=== PATIENT | male | born 1980 | race American Indian/Alaskan Native ===

== ENCOUNTER 2017-10-04 09:55 | Emergency (ER) | payer BC, OTHER ==
[2017-10-04 10:30] VITALS: BMI 26.4
[2017-10-04 10:44] VITALS: RESP 18; TEMP 97.2
--- NOTE | 2017-10-04 10:55 | ED PDOC ---
Arrival/HPI - General Chief Complaint: Upper Extremity Problem/Injury Time Seen by Provider: 10/04/17 10:26 Historian: Patient - History of Present Illness Narrative History of Present Illness (Text): 10/04/17 10:52 This 37 yo male who denies pmh, presents to this ED c/o left shoulder pain x 2 days. 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 Patient denies fall, skin rash, weakness, paresthesias, sob, cp, abdominal pain, neck pain, GO, or abnormal gait. Time/Duration: Other (see hpi) Context: Home Past Medical History - Provider Review Nursing Documentation Reviewed: Yes - Past History Past History: No Previous - Infectious Disease Hx of Infectious Diseases: None - Tetanus Immunization Tetanus Immunization: Unknown - Past Medical History Past Medical History: No Previous - Psychiatric Hx Psychophysiologic Disorder: No Hx Anxiety: No Hx Bipolar Disorder: No Hx Depression: No Hx Emotional Abuse: No Hx Hallucinations: No Hx Panic Disorder: No Hx Post Traumatic Stress Disorder: No Hx Psychosis: No Hx Physical Abuse: No Hx Schizophrenia: No Hx Sexual Abuse: No Hx Substance Use: No - Past Surgical History Past Surgical History: No Previous - Anesthesia Hx Anesthesia Reactions: No Hx Malignant Hyperthermia: No - Suicidal Assessment Feels Threatened In Home Enviroment: No Family/Social History - Physician Review Nursing Documentation Reviewed: Yes Family/Social History: Other (noncontributory) Smoking Status: Light Smoker < 10 Cigarettes Daily Hx Alcohol Use: No Hx Substance Use: No Hx Substance Use Treatment: No Allergies/Home Meds Allergies/Adverse Reactions: Allergies No Known Allergies Allergy (Verified 04/06/16 07:53) Review of Systems - Review of Systems Constitutional: Normal. absent: Fatigue, Weight Change, Fevers, Night Sweats Eyes: Normal ENT: Normal Respiratory: Normal. absent: SOB, Cough Cardiovascular: Normal. absent: Chest Pain, Palpitations Gastrointestinal: Normal. absent: Abdominal Pain, Nausea, Vomiting Genitourinary Male: Normal Musculoskeletal: Other (left shoulder pain) Skin: Normal Neurological: Normal Endocrine: Normal Hemo/Lymphatic: Normal Psychiatric: Normal Physical Exam Vital Signs Temp Pulse Resp BP Pulse Ox 10/04/17 09:56 97.2 F L 76 18 122/80 98 Temperature: Afebrile Blood Pressure: Normal Pulse: Regular Respiratory Rate: Normal Appearance: Positive for: Well-Appearing, Non-Toxic, Comfortable Pain Distress: None Mental Status: Positive for: Alert and Oriented X 3 - Systems Exam Head: Present: Atraumatic, Normocephalic Pupils: Present: PERRL Extroacular Muscles: Present: EOMI Conjunctiva: Present: Normal Mouth: Present: Moist Mucous Membranes Neck: Present: Normal Range of Motion Respiratory/Chest: Present: Clear to Auscultation, Good Air Exchange. No: Respiratory Distress, Accessory Muscle Use Cardiovascular: Present: Regular Rate and Rhythm, Normal S1, S2. No: Murmurs Abdomen: No: Tenderness, Distention, Peritoneal Signs Back: Present: Normal Inspection Upper Extremity: Present: Normal Inspection, Normal ROM, NORMAL PULSES, Tenderness ((+) mild tenderness over anterior shoulder), Neurovascularly Intact , Capillary Refill < 2s. No: Cyanosis, Edema Lower Extremity: Present: Normal Inspection, Normal ROM. No: Edema Neurological: Present: GCS=15, CN II-XII Intact, Speech Normal, Motor Func Grossly Intact, Normal Sensory Function, Normal Cerebellar Funct, Gait Normal Skin: Present: Warm, Dry, Normal Color. No: Rashes Psychiatric: Present: Alert, Oriented x 3, Normal Insight, Normal Concentration Medical Decision Making ED Course and Treatment: 10/04/17 11:41 Re-evaluation. Patient feels better. Discussed results and plan with patient who expresses understanding. All questions answered and there is agreement with the plan to discharge home with instructions. Patient stable for discharge. Return if symptoms persist or worsen. Re-evaluation Time: 11:41 Reassessment Condition: Re-examined, Improved - RAD Interpretation Radiology Orders: 10/04/17 10:58 SHOULDER LEFT [RAD] Stat - Medication Orders Current Medication Orders: Discontinued Medications Ketorolac Tromethamine (Toradol) 30 mg IM STAT STA Stop: 10/04/17 11:00 Last Admin: 10/04/17 11:38 Dose: 30 mg MAR Pain Assessment Document 10/04/17 11:38 GMD (Rec: 10/04/17 11:39 GMD [id number]) Pain Reassessment Is this a pain reassessment? No IM Administration Charges Document 10/04/17 11:38 GMD (Rec: 10/04/17 11:39 GMD [id number]) Injection Site MAR Injection Site Left Deltoid Charges for Administration # of IM Administrations 1 Disposition/Present on Arrival - Present on Arrival Any Indicators Present on Arrival: No History of DVT/PE: No History of Uncontrolled Diabetes: No Urinary Catheter: No History of Decub. Ulcer: No History Surgical Site Infection Following: None - Disposition Have Diagnosis and Disposition been Completed?: Yes Diagnosis: Shoulder pain, left Disposition: HOME/ ROUTINE Disposition Time: 11:42 Patient Plan: Discharge Condition: GOOD Discharge Instructions (ExitCare): Shoulder Pain (DC), Shoulder Tendinopathy ( DC) Additional Instructions: [facility] Employee Regarding your Work Related Injury, you are instructed to do all of the following by next day: 1. Notify [employer] [facility] Employee Health Department of the sustained injury and arrange for any follow-up appointments if needed during the next business day. If the office is closed or no answer is received, please leave a detailed voice message. Message should include your full name, department and laboratory manager, date of injury, date of ED visit if applicable. Employee Health can be reached at [phone]. 2. If there is time lost, notify [employer] [facility] Human Resources Department of the work related injury the next business day at [phone] with arm sling on. Arm sling to be use 3-5 days Prescriptions: Ibuprofen [Motrin] 400 mg PO Q8H PRN #20 tab PRN Reason: Pain, Severe (8-10) Referrals: PCP,NO [Primary Care Provider] - Follow up with primary Forms: [employer] (Maltese)
[2017-10-04 11:52] VITALS: BP 126/78; PULSE 80; O2SAT 100
--- NOTE | 2017-10-04 12:31 | RAD ---
PROCEDURE: Radiographs of the Left Shoulder HISTORY: pain COMPARISON: No prior. FINDINGS: BONES: Normal. No fracture. JOINTS: Normal. Glenohumeral and acromioclavicular joints preserved. No osteoarthritis. SOFT TISSUES: Normal. OTHER FINDINGS: None. IMPRESSION: Normal radiographs of the left shoulder.
== END 2017-10-04 11:56 | disposition home or self-care (01) ==
LOC: ED 09:55
DX: M25.512 Pain in left shoulder (principal)
CPT/HCPCS: 73030; 96372; 99284; J1885

== ENCOUNTER 2017-10-19 09:24 | Emergency (ER) | payer OTHER ==
[2017-10-19 09:25] VITALS: BMI 25.1
[2017-10-19 09:46] VITALS: BP 129/79; RESP 18
--- NOTE | 2017-10-19 10:01 | ED PDOC ---
Arrival/HPI - General Chief Complaint: Trauma Time Seen by Provider: 10/19/17 09:57 Historian: Patient - History of Present Illness Narrative History of Present Illness (Text): 10/19/17 09:58 37 y/o male, no significant pmh, nkda, c/o rt. lower rib pain s/p hit by the cart this morning while at work. Aching pain, aggravated by movement, no back pain, no numbness or tingling, no flank pain, no hematuria, no rash, no dizziness, no chest pain or shortness of breath, no other medical or psychological complaints. Past Medical History - Provider Review Nursing Documentation Reviewed: Yes - Past History Past History: No Previous - Infectious Disease Hx of Infectious Diseases: None - Tetanus Immunization Tetanus Immunization: Unknown - Past Medical History Past Medical History: No Previous - Psychiatric Hx Psychophysiologic Disorder: No Hx Substance Use: No - Past Surgical History Past Surgical History: No Previous - Anesthesia Hx Anesthesia Reactions: No Hx Malignant Hyperthermia: No - Suicidal Assessment Feels Threatened In Home Enviroment: No Family/Social History - Physician Review Nursing Documentation Reviewed: Yes Family/Social History: Unknown Family HX Smoking Status: Light Smoker < 10 Cigarettes Daily Hx Alcohol Use: No Hx Substance Use: No Hx Substance Use Treatment: No Allergies/Home Meds Allergies/Adverse Reactions: Allergies No Known Allergies Allergy (Verified 10/19/17 09:47) Review of Systems - Review of Systems Constitutional: absent: Fatigue, Fevers Eyes: absent: Vision Changes ENT: absent: Hearing Changes Respiratory: absent: SOB, Cough, Sputum Cardiovascular: absent: Chest Pain Gastrointestinal: absent: Abdominal Pain, Nausea, Vomiting Musculoskeletal: Arthralgias, Myalgias. absent: Back Pain, Neck Pain, Joint Swelling Skin: absent: Rash, Pruritis Neurological: absent: Headache, Dizziness Psychiatric: absent: Anxiety, Depression, Suicidal Ideation Physical Exam Vital Signs Reviewed: Yes Vital Signs Temp Pulse Resp BP Pulse Ox 10/19/17 09:44 98.3 F 75 18 129/79 99 Temperature: Afebrile Blood Pressure: Normal Pulse: Regular Respiratory Rate: Normal Appearance: Positive for: Well-Appearing, Non-Toxic, Comfortable Pain Distress: Mild Mental Status: Positive for: Alert and Oriented X 3 - Systems Exam Head: Present: Atraumatic, Normocephalic Pupils: Present: PERRL Extroacular Muscles: Present: EOMI Conjunctiva: Present: Normal Mouth: Present: Moist Mucous Membranes Neck: Present: Normal Range of Motion Respiratory/Chest: Present: Clear to Auscultation, Good Air Exchange, Tender to Palpation (mild +ttp on the rt. lateral posterior rib cage with no ecchymosis/ laceration/abrasion). No: Respiratory Distress, Accessory Muscle Use, Wheezes, Decreased Breath Sounds, Rales, Retracting, Rhonchi, Tachypneic Cardiovascular: Present: Regular Rate and Rhythm, Normal S1, S2. No: Murmurs Abdomen: No: Tenderness, Distention, Peritoneal Signs Back: Present: Normal Inspection Upper Extremity: Present: Normal Inspection. No: Cyanosis, Edema Lower Extremity: Present: Normal Inspection. No: Edema Neurological: Present: GCS=15, CN II-XII Intact, Speech Normal Skin: Present: Warm, Dry, Normal Color. No: Rashes Psychiatric: Present: Alert, Oriented x 3, Normal Insight, Normal Concentration Medical Decision Making ED Course and Treatment: 10/19/17 10:00 -rt. rib/chest xray -motrin -observe and reassess 10/19/17 10:42 -xray show There is a nondisplaced linear fracture in the right 11th rib -Incentive spirometer ordered -Discharge home with motrin, ice compression, follow up with your own pmd and orthopedic within 2 days, return to the ER for any new or worsening signs or symptoms. - RAD Interpretation Radiology Orders: 10/19/17 09:57 RIBS RIGHT & PA CHEST [RAD] Stat PROCEDURE: Radiographs of the Chest and Right Ribs. HISTORY: rt. lower rib injury this morning, co pain, r/o fx COMPARISON: None available. TECHNIQUE: Frontal radiograph of the chest and multiple oblique radiographs of the right ribs were obtained. FINDINGS: RIGHT RIBS: There is a nondisplaced linear fracture in the right 11th rib LUNGS: Clear. PLEURA: No pneumothorax or pleural fluid. CARDIOVASCULAR: Normal sized heart. No pulmonary vascular congestion. OTHER FINDINGS: None. IMPRESSION: There is a nondisplaced linear fracture in the right 11th rib [employer] Assistants: Radiologist - Medication Orders Current Medication Orders: Discontinued Medications Ibuprofen (Motrin Tab) 600 mg PO STAT STA Stop: 10/19/17 09:58 Last Admin: 10/19/17 10:05 Dose: 600 mg MAR Pain/Vitals Document 10/19/17 10:05 [email or web address] (Rec: 10/19/17 10:06 [email or web address] [id number]) Pain Reassessment Is This A Pain ReAssessment? No Sleep Is patient sleeping during reassessment? No Presence of Pain Presence of Pain Yes Pain Scale Used Pain Scale Used Numeric Location Left, Right or Bilateral Right Pain Location Body Site Back Description Constant Intensity 7 Scale Used Numeric Pain Behavior Facial Grimacing Aggravating Factors Changing Position Alleviating Factors Medication - PA / CHILLER OPERATOR / Resident Statement MD/DO has reviewed & agrees with the documentation as recorded. Disposition/Present on Arrival - Present on Arrival Any Indicators Present on Arrival: No History of DVT/PE: No History of Uncontrolled Diabetes: No Urinary Catheter: No History of Decub. Ulcer: No History Surgical Site Infection Following: None - Disposition Have Diagnosis and Disposition been Completed?: Yes Diagnosis: Rib injury, Rib pain, Rib fracture Disposition: HOME/ ROUTINE Disposition Time: 10:01 Patient Plan: Discharge Patient Problems: Current Active Problems Problem Status Onset Rib injury Acute Rib pain Acute Condition: IMPROVED Additional Instructions: -Discharge home with motrin, ice compression, incentive spirometer, follow up with your own pmd and orthopedic within 2 days, return to the ER for any new or worsening signs or symptoms. Prescriptions: Ibuprofen [Motrin] 600 mg PO TID PRN #21 tab PRN Reason: Other Referrals: Keisha Cano MD [Staff Provider] - Follow up with primary Forms: WORK NOTE
--- NOTE | 2017-10-19 11:04 | RAD ---
PROCEDURE: Radiographs of the Chest and Right Ribs. HISTORY: rt. lower rib injury this morning, co pain, r/o fx COMPARISON: None available. TECHNIQUE: Frontal radiograph of the chest and multiple oblique radiographs of the right ribs were obtained. FINDINGS: RIGHT RIBS: There is a nondisplaced linear fracture in the right 11th rib LUNGS: Clear. PLEURA: No pneumothorax or pleural fluid. CARDIOVASCULAR: Normal sized heart. No pulmonary vascular congestion. OTHER FINDINGS: None. IMPRESSION: There is a nondisplaced linear fracture in the right 11th rib
[2017-10-19 11:18] VITALS: PULSE 79; TEMP 98.1; O2SAT 97
== END 2017-10-19 11:21 | disposition home or self-care (01) ==
LOC: ED 09:24
DX: S22.31XA Fracture of one rib, right side, initial encounter for closed fracture (principal); W22.8XXA Striking against or struck by other objects, initial encounter; Y92.238 Other place in hospital as the place of occurrence of the external cause; Y99.0 Civilian activity done for income or pay; R07.81 Pleurodynia

== ENCOUNTER 2017-11-20 06:56 | Emergency (ER) | payer OTHER ==
[2017-11-20 06:57] VITALS: BMI 25.1
[2017-11-20 07:03] VITALS: BP 112/84; RESP 18
--- NOTE | 2017-11-20 07:38 | ED PDOC ---
Arrival/HPI - General Historian: Patient - History of Present Illness Time/Duration: < week Symptom Onset: Gradual Symptom Course: Unchanged Severity Level: 6 <Miroslava Mustafa - Last Filed: 11/20/17 07:42> <Bebo Yang - Last Filed: 11/20/17 10:44> - General Chief Complaint: Finger,Hand,&Wrist Time Seen by Provider: 11/20/17 07:19 - History of Present Illness Narrative History of Present Illness (Text): 11/20/17 07:34 Patient is a 37 year old male with no significant past medical history who presented to the ED for right wrist pain that started 1-2 days ago. Patient states that he was seen in the ED 1 year ago and was told that he had a ganglion cyst on his wrist. Patient states that he experiences localized pain in the area of the cyst during movement and admits to experiencing intermittent numbness at the thenar eminence. Denies any recent trauma or inciting events. Rates the pain a 6/10 on the pain scale and has not tried taking anything for the pain. States that the cyst has not increased in size. Denies headaches, dizziness, cp, palpitations, sob, abdominal pain, urinary symptoms, changes in bowel habits. 11/20/17 07:42 (Miroslava Mustafa) Past Medical History - Past History Past History: No Previous - Infectious Disease Hx of Infectious Diseases: None - Tetanus Immunization Tetanus Immunization: Unknown - Past Medical History Past Medical History: No Previous - Psychiatric Hx Psychophysiologic Disorder: No Hx Substance Use: No - Past Surgical History Past Surgical History: No Previous - Anesthesia Hx Anesthesia Reactions: No Hx Malignant Hyperthermia: No - Suicidal Assessment Feels Threatened In Home Enviroment: No <Miroslava Mustafa - Last Filed: 11/20/17 07:42> Family/Social History Smoking Status: Light Smoker < 10 Cigarettes Daily Hx Alcohol Use: No Hx Substance Use: No Hx Substance Use Treatment: No <Miroslava Mustafa - Last Filed: 11/20/17 07:42> Family/Social History: No Known Family HX <Bebo Yang - Last Filed: 11/20/17 10:44> Allergies/Home Meds <Miroslava Mustafa - Last Filed: 11/20/17 07:42> <Bebo Yang - Last Filed: 11/20/17 10:44> Allergies/Adverse Reactions: Allergies No Known Allergies Allergy (Verified 10/19/17 09:47) Home Medications: Home Meds Medication Instructions Recorded Confirmed No Known Home Med 11/20/17 11/20/17 Review of Systems - Review of Systems Constitutional: Normal Eyes: Normal ENT: Normal Respiratory: Normal Cardiovascular: Normal Gastrointestinal: Normal Genitourinary Male: Normal Musculoskeletal: Other (Wrist pain ) Skin: Normal. absent: Rash, Cellulitis Neurological: Other (Intermittent numbness at thenar eminence of right hand). absent: Headache, Dizziness <Miroslava Mustafa - Last Filed: 11/20/17 07:42> Physical Exam Vital Signs Reviewed: Yes Appearance: Positive for: Well-Appearing Pain Distress: Mild Mental Status: Positive for: Alert and Oriented X 3 - Systems Exam Head: Present: Atraumatic, Normocephalic Pupils: Present: PERRL Extroacular Muscles: Present: EOMI Conjunctiva: Present: Normal Mouth: Present: Moist Mucous Membranes Respiratory/Chest: Present: Clear to Auscultation, Good Air Exchange. No: Respiratory Distress, Accessory Muscle Use Cardiovascular: Present: Regular Rate and Rhythm, Normal S1, S2. No: Murmurs Upper Extremity: Present: Normal ROM, NORMAL PULSES, Other (Right wrist: Pain with extension, distal pulses intact, dime-sized ganglion cyst on the anterior surface of right wrist, cyst is tender to palpation, mobile and firm; no skin changes ) Lower Extremity: Present: Normal Inspection Neurological: Present: CN II-XII Intact Skin: Present: Warm, Dry, Normal Color Psychiatric: Present: Alert, Oriented x 3 <Miroslava Mustafa - Last Filed: 11/20/17 07:42> Vital Signs Temp Pulse Resp BP Pulse Ox 11/20/17 07:55 98.1 F 89 18 99 11/20/17 07:02 98.2 F 87 18 112/84 100 Medical Decision Making <Miroslava Mustafa - Last Filed: 11/20/17 07:42> <Bebo Yang - Last Filed: 11/20/17 10:44> ED Course and Treatment: 11/20/17 07:44 benign presentaton for ganglionic cyst of the right wrist, chronic issue, no current evidence of secondary infection, nsaids and refer to hand specialist. ( Bebo Yang) Disposition/Present on Arrival - Present on Arrival Any Indicators Present on Arrival: No History of DVT/PE: No History of Uncontrolled Diabetes: No Urinary Catheter: No History of Decub. Ulcer: No History Surgical Site Infection Following: None - Disposition Have Diagnosis and Disposition been Completed?: Yes <Miroslava Mustafa - Last Filed: 11/20/17 07:42> - Present on Arrival Any Indicators Present on Arrival: No - Disposition Have Diagnosis and Disposition been Completed?: Yes Disposition Time: 07:44 Patient Plan: Discharge <Bebo Yang - Last Filed: 11/20/17 10:44> - Disposition Diagnosis: Ganglion cyst of flexor tendon sheath, Ganglion cyst Disposition: HOME/ ROUTINE Condition: STABLE Discharge Instructions (ExitCare): Ganglion Cyst (DC) Print Language: ICELANDIC Additional Instructions: follow up with a hand specialist for potential surgical treatment of the ganglionic cyst. Referrals: Tom Flores MD [Non-Staff] - Follow up with primary Tamiko Rey MD [Non-Staff] - Follow up with primary Forms: [employer] (Amharic), WORK NOTE
[2017-11-20 07:56] VITALS: PULSE 89; TEMP 98.1; O2SAT 99
== END 2017-11-20 07:55 | disposition home or self-care (01) ==
LOC: ED 06:56
DX: M67.431 Ganglion, right wrist (principal)